=== PATIENT | male | born 1990 | race Two or more races ===

== ENCOUNTER 2019-10-24 17:24 | Inpatient (IN) | payer MEDICAID ==
[~2019-10-24] VITALS: Ht 167.6 cm; Wt 79.4 kg
[2019-10-24 18:13] LABS: BASOPHILS % 0.6 % (0.0-2.0); EOSINOPHILS % 1.8 % (0.0-5.0); HEMATOCRIT. 33.5 % (42.0-52.0); HEMOGLOBIN. 11.2 g/dL (14.0-18.0); LYMPHOCYTES % 16.3 % (20.0-50.0); MEAN CORPUSCULAR HEMOGLOBIN 28.8 pg (28.0-32.0); MEAN CORPUSCULAR VOLUME 85.8 fL (80.0-94.0); MEAN PLATELET VOLUME 7.4 fl (7.4-10.4); MONOCYTES % 7.5 % (2.0-8.0); NEUTROPHILS % 73.8 % (40.0-76.0); PLATELET 369 x1000/uL (130-400); RED BLOOD CELL COUNT 3.91 mill/uL (4.7-6.1); RED CELL DISTRIBUTION WIDTH 13.4 % (11.6-14.6)
[2019-10-24 18:16] LABS: INR 1.1; PROTHROMBIN TIME 11.7 sec (9.6-11.0)
[2019-10-24 18:20] LABS: CHLORIDE 110 mEq/L (98-107)
[2019-10-24] MEDS ORDERED: ONDANSETRON HCL 4MG/2ML INJ IV ONE (19:00)
[2019-10-24] MEDS ORDERED: SODIUM CHLORIDE 0.9% 1,000 ML IV ONE (19:00)
[2019-10-24] MEDS ORDERED: SODIUM CHLORIDE 0.9% 500 ML IV ONE (19:15)
[2019-10-24 20:01] LABS: HEMATOCRIT 26.6 % (42.0-52.0)
[2019-10-24] MEDS ORDERED: FAMOTIDINE 20MG/2ML VIAL IV ONE (20:45)
[2019-10-24 22:57] LABS: CLARITY URINE CLEAR (CLEAR); COLOR URINE YELLOW (YELLOW); KETONES URINE NEGATIVE (NEGATIVE); LEUKOCYTE ESTERASE URINE NEGATIVE (NEGATIVE); NITRITE URINE NEGATIVE (NEGATIVE); OCCULT BLOOD URINE NEGATIVE (NEGATIVE); PH URINE 5.5 (4.5-8.0); PROTEIN URINE NEGATIVE (NEGATIVE); SPECIFIC GRAVITY URINE 1.017 (1.005-1.030); UROBILINOGEN URINE 0.2 E.U./dL (0.2-1.0)
[2019-10-25] VITALS (12 sets, daily range): BP systolic 95–133; BP diastolic 50–80
[2019-10-25] MEDS ORDERED: OCTREOTIDE 1,000 MCG in SODIUM CHLORIDE 0.9% 100 ML IV ONE (00:30)
[2019-10-25] MEDS ORDERED: OCTREOTIDE 1,000 MCG in SODIUM CHLORIDE 0.9% 100 ML IV NR ×2 (01:00→02:00)
[2019-10-25] MEDS ORDERED: MORPHINE SULFATE 2 MG/ML CPJ (NOT FOR IM USE) IV PRN (03:45)
[2019-10-25] MEDS ORDERED: ONDANSETRON HCL 4MG/2ML INJ IV PRN (03:45)
[2019-10-25] MEDS ORDERED: OCTREOTIDE 1,000 MCG in SODIUM CHLORIDE 0.9% 98 ML IV SCH (05:00)
[2019-10-25] MEDS: DEXT 5%/0.45% NACL KCL 20MEQ/L 1,000 ML IV SCH ×3 (05:13→21:57)
[2019-10-25] MEDS: PANTOPRAZOLE SODIUM 40 MG/VIAL IV SCH (08:51)
[2019-10-25 09:41] LABS: BASOPHILS % 0.7 % (0.0-2.0); EOSINOPHILS % 2.9 % (0.0-5.0); HEMATOCRIT. 31.4 % (42.0-52.0); HEMOGLOBIN. 10.9 g/dL (14.0-18.0); LYMPHOCYTES % 22.6 % (20.0-50.0); MEAN CORPUSCULAR VOLUME 86.3 fL (80.0-94.0); MEAN PLATELET VOLUME 7.2 fl (7.4-10.4); MONOCYTES % 12.3 % (2.0-8.0); NEUTROPHILS % 61.5 % (40.0-76.0); PLATELET 270 x1000/uL (130-400); RED BLOOD CELL COUNT 3.64 mill/uL (4.7-6.1); RED CELL DISTRIBUTION WIDTH 13.7 % (11.6-14.6)
[2019-10-25 09:48] LABS: CHLORIDE 110 mEq/L (98-107)
[2019-10-26] VITALS (8 sets, daily range): BP systolic 101–118; BP diastolic 42–97
[2019-10-26] MEDS: DEXT 5%/0.45% NACL KCL 20MEQ/L 1,000 ML IV SCH (06:03)
[2019-10-26 06:55] LABS: CHLORIDE 108 mEq/L (98-107)
[2019-10-26 08:07] LABS: BASOPHILS % 1.2 % (0.0-2.0); EOSINOPHILS % 4.5 % (0.0-5.0); HEMATOCRIT. 33.3 % (42.0-52.0); HEMOGLOBIN. 11.6 g/dL (14.0-18.0); LYMPHOCYTES % 23.6 % (20.0-50.0); MEAN CORPUSCULAR HEMOGLOBIN 30.8 pg (28.0-32.0); MEAN CORPUSCULAR VOLUME 88.3 fL (80.0-94.0); MONOCYTES % 12.1 % (2.0-8.0); NEUTROPHILS % 58.6 % (40.0-76.0); PLATELET 226 x1000/uL (130-400); RED BLOOD CELL COUNT 3.77 mill/uL (4.7-6.1); RED CELL DISTRIBUTION WIDTH 13.8 % (11.6-14.6)
[2019-10-26] MEDS: PANTOPRAZOLE SODIUM 40 MG/VIAL IV SCH (09:59)
== END 2019-10-26 19:00 | disposition home or self-care (01) | DRG 254 ==
LOC: EDSEX 17:24 → ER 17:24 → 5EST 10-25 00:38 → EDBEDREQTM 10-25 00:42 → EDBEDREQSVC 10-25 00:42 → EDBEDREQDT 10-25 00:42 → ENRESERV 10-25 01:55
PROVIDERS: ADMIT Internal Medicine; ATTEND Internal Medicine
PROC: 30233N1 Transfusion of Nonautologous Red Blood Cells into Peripheral Vein, Percutaneous Approach (ICD-10-PCS; principal; 2019-10-25)
DX: K64.9 Unspecified hemorrhoids (principal); E87.8 Other disorders of electrolyte and fluid balance, not elsewhere classified; E44.0 Moderate protein-calorie malnutrition; G90.8 Other disorders of autonomic nervous system; D64.9 Anemia, unspecified; D72.829 Elevated white blood cell count, unspecified; K52.9 Noninfective gastroenteritis and colitis, unspecified; K62.89 Other specified diseases of anus and rectum; K60.2 Anal fissure, unspecified; Z68.28 Body mass index [BMI] 28.0-28.9, adult; Z79.899 Other long term (current) drug therapy
CPT/HCPCS: 36415; 74176; 80048; 80053; 81003; 84484; 85014; 85018; 85025; 86850; 86900; 86920; 93005; 99291; C9113; J2354; J2405; J3490; J7030; J7040; J7050; P9016

== ENCOUNTER 2019-10-26 17:00 | Inpatient (IN) | payer MEDICAID ==
[~2019-10-26] VITALS: Ht 167.6 cm; Wt 75.9 kg
[2019-10-26] MEDS ORDERED: SODIUM CHLORIDE 0.9% 1,000 ML IV ONE (18:37)
[2019-10-26] MEDS ORDERED: PANTOPRAZOLE SODIUM 40 MG/VIAL IV ONE (18:45)
[2019-10-26 19:06] LABS: BASOPHILS % 0.2 % (0.0-2.0); EOSINOPHILS % 0.4 % (0.0-5.0); HEMATOCRIT. 31.7 % (42.0-52.0); LYMPHOCYTES % 7.6 % (20.0-50.0); MEAN CORPUSCULAR HEMOGLOBIN 29.9 pg (28.0-32.0); MEAN CORPUSCULAR VOLUME 86.3 fL (80.0-94.0); MEAN PLATELET VOLUME 7.1 fl (7.4-10.4); MONOCYTES % 5.8 % (2.0-8.0); PLATELET 345 x1000/uL (130-400); RED BLOOD CELL COUNT 3.67 mill/uL (4.7-6.1); RED CELL DISTRIBUTION WIDTH 13.6 % (11.6-14.6)
[2019-10-26 19:13] LABS: CHLORIDE 106 mEq/L (98-107)
[2019-10-26 19:15] LABS: INR 1.1
[2019-10-27] VITALS (7 sets, daily range): BP systolic 96–123; BP diastolic 42–72
[2019-10-27] MEDS ORDERED: ONDANSETRON HCL 4MG TABLET PO PRN (03:00)
[2019-10-27] MEDS: SODIUM CHLORIDE 0.9% 1,000 ML IV SCH ×2 (04:09→12:03)
[2019-10-27] MEDS: PANTOPRAZOLE 80 MG in SODIUM CHLORIDE 0.9% 100 ML IV SCH ×2 (04:41→17:12)
[2019-10-27] MEDS ORDERED: OCTREOTIDE 1,000 MCG in SODIUM CHLORIDE 0.9% 98 ML IV PRN (05:00)
[2019-10-27 11:26] LABS: BASOPHILS % 0.6 % (0.0-2.0); EOSINOPHILS % 2.3 % (0.0-5.0); HEMOGLOBIN. 9.1 g/dL (14.0-18.0); LYMPHOCYTES % 19.2 % (20.0-50.0); MEAN CORPUSCULAR HEMOGLOBIN 30.3 pg (28.0-32.0); MEAN CORPUSCULAR VOLUME 85.7 fL (80.0-94.0); MEAN PLATELET VOLUME 7.6 fl (7.4-10.4); NEUTROPHILS % 67.9 % (40.0-76.0); PLATELET 280 x1000/uL (130-400); RED CELL DISTRIBUTION WIDTH 13.7 % (11.6-14.6)
[2019-10-27] MEDS: HEMORRHOIDAL SUPP PR SCH ×2 (12:09→21:20)
[2019-10-27] MEDS ORDERED: SORBITOL 70% SOLN 30ML PO NR ×2 (16:00→20:00)
[2019-10-27 16:26] LABS: CLARITY URINE CLEAR (CLEAR); COLOR URINE YELLOW (YELLOW); KETONES URINE 1+ (NEGATIVE); LEUKOCYTE ESTERASE URINE NEGATIVE (NEGATIVE); NITRITE URINE NEGATIVE (NEGATIVE); OCCULT BLOOD URINE NEGATIVE (NEGATIVE); PH URINE 5.5 (4.5-8.0); PROTEIN URINE NEGATIVE (NEGATIVE); SPECIFIC GRAVITY URINE 1.018 (1.005-1.030)
[2019-10-27 16:40] LABS: *BARBITURATES SCREEN URINE NEGATIVE (NEGATIVE); *BENZODIAZEPINES SCREEN URINE NEGATIVE (NEGATIVE); *COCAINE SCREEN URINE NEGATIVE (NEGATIVE); METHADONE URINE SCREEN NEGATIVE (NEGATIVE); OPIATES URINE SCREEN NEGATIVE (NEGATIVE)
[2019-10-27 16:41] LABS: *AMPHETAMINES SCREEN URINE NEGATIVE (NEGATIVE); CANNABINOID URINE SCREEN PRESUMTIVE POSITIVE (NEGATIVE); PHENCYCLIDINE URINE SCREEN NEGATIVE (NEGATIVE)
[2019-10-27 18:02] LABS: HEMATOCRIT 27.8 % (42.0-52.0); HEMOGLOBIN 9.5 g/dL (14.0-18.0)
[2019-10-27 23:04] LABS: HEMATOCRIT 27.8 % (42.0-52.0); HEMOGLOBIN 9.8 g/dL (14.0-18.0)
[2019-10-28] VITALS (13 sets, daily range): BP systolic 92–114; BP diastolic 56–69
[2019-10-28] MEDS: SODIUM CHLORIDE 0.9% 1,000 ML IV SCH ×4 (02:49→20:00)
[2019-10-28] MEDS: PANTOPRAZOLE 80 MG in SODIUM CHLORIDE 0.9% 100 ML IV SCH ×3 (02:49→21:36)
[2019-10-28] MEDS: HEMORRHOIDAL SUPP PR SCH ×2 (08:39→21:32)
[2019-10-28] MEDS ORDERED: NA PHOS,M-B/NA PHOS,DI-BA ENEMA 118ML PR NR (08:45)
[2019-10-28 09:50] LABS: BASOPHILS % 0.2 % (0.0-2.0); EOSINOPHILS % 0.1 % (0.0-5.0); HEMATOCRIT. 28.1 % (42.0-52.0); HEMOGLOBIN. 9.8 g/dL (14.0-18.0); LYMPHOCYTES % 15.3 % (20.0-50.0); MEAN CORPUSCULAR HEMOGLOBIN 30.8 pg (28.0-32.0); MEAN CORPUSCULAR VOLUME 87.9 fL (80.0-94.0); MEAN PLATELET VOLUME 7.3 fl (7.4-10.4); MONOCYTES % 8.7 % (2.0-8.0); NEUTROPHILS % 75.7 % (40.0-76.0); PLATELET 268 x1000/uL (130-400); RED BLOOD CELL COUNT 3.19 mill/uL (4.7-6.1)
[2019-10-28 09:58] LABS: INR 1.1
[2019-10-28 10:06] LABS: CHLORIDE 114 mEq/L (98-107)
[2019-10-28] MEDS ORDERED: SODIUM CHLORIDE 0.9% 10ML VIAL ONE (14:10)
[2019-10-28] MEDS ORDERED: MIDAZOLAM HCL 5 MG/5 ML VIAL ONE ×2 (15:08→15:30)
[2019-10-28] MEDS ORDERED: FENTANYL CITRATE/PF 50MCG/ML 2ML VIAL ONE (15:09)
[2019-10-28] MEDS ORDERED: MIDAZOLAM HCL 5 MG/5 ML VIAL IV PRN (15:16)
[2019-10-28] MEDS ORDERED: FENTANYL CITRATE/PF 50MCG/ML 2ML VIAL IV PRN (15:17)
[2019-10-29] VITALS: BP 113/60
[2019-10-29 04:12] VITALS: BP 104/70
[2019-10-29] MEDS: SODIUM CHLORIDE 0.9% 1,000 ML IV SCH ×2 (06:00→15:02)
[2019-10-29 08:00] VITALS: BP 90/49
[2019-10-29] MEDS: PANTOPRAZOLE 80 MG in SODIUM CHLORIDE 0.9% 100 ML IV SCH ×2 (08:27→21:55)
[2019-10-29] MEDS: HEMORRHOIDAL SUPP PR SCH (08:28)
[2019-10-29 08:37] LABS: BASOPHILS % 0.6 % (0.0-2.0); EOSINOPHILS % 3.1 % (0.0-5.0); HEMATOCRIT. 25.8 % (42.0-52.0); HEMOGLOBIN. 9.1 g/dL (14.0-18.0); LYMPHOCYTES % 23.1 % (20.0-50.0); MEAN CORPUSCULAR HEMOGLOBIN 30.8 pg (28.0-32.0); MEAN CORPUSCULAR VOLUME 87.3 fL (80.0-94.0); MEAN PLATELET VOLUME 7.1 fl (7.4-10.4); MONOCYTES % 9.3 % (2.0-8.0); NEUTROPHILS % 63.9 % (40.0-76.0); PLATELET 251 x1000/uL (130-400); RED BLOOD CELL COUNT 2.95 mill/uL (4.7-6.1); RED CELL DISTRIBUTION WIDTH 14.2 % (11.6-14.6)
[2019-10-29 09:09] LABS: CHLORIDE 111 mEq/L (98-107)
[2019-10-29 12:00] VITALS: BP 97/55
[2019-10-29] MEDS ORDERED: HYDR25SU37 RC (12:57)
[2019-10-29 16:00] VITALS: BP 120/63
[2019-10-29] MEDS ORDERED: SODIUM CHLORIDE 0.9% 1,000 ML IV SCH (16:30)
[2019-10-29 20:00] VITALS: BP 105/60
[2019-10-29] MEDS: HYDROCORTISONE ACETATE 25MG SUPP PR SCH (21:15)
[2019-10-30] VITALS (9 sets, daily range): BP systolic 75–119; BP diastolic 50–85
[2019-10-30] MEDS: SODIUM CHLORIDE 0.9% 1,000 ML IV SCH ×4 (01:26→21:01)
[2019-10-30] MEDS: PANTOPRAZOLE 80 MG in SODIUM CHLORIDE 0.9% 100 ML IV SCH ×3 (04:26→23:51)
[2019-10-30 06:17] LABS: EOSINOPHILS % 4.2 % (0.0-5.0); HEMATOCRIT. 25.6 % (42.0-52.0); LYMPHOCYTES % 22.5 % (20.0-50.0); MEAN CORPUSCULAR HEMOGLOBIN 30.5 pg (28.0-32.0); MEAN CORPUSCULAR VOLUME 86.6 fL (80.0-94.0); MEAN PLATELET VOLUME 7.5 fl (7.4-10.4); MONOCYTES % 10.6 % (2.0-8.0); NEUTROPHILS % 61.7 % (40.0-76.0); PLATELET 286 x1000/uL (130-400); RED BLOOD CELL COUNT 2.96 mill/uL (4.7-6.1); RED CELL DISTRIBUTION WIDTH 14.1 % (11.6-14.6)
[2019-10-30] MEDS: HYDROCORTISONE ACETATE 25MG SUPP PR SCH ×2 (10:13→21:01)
[2019-10-30 12:14] LABS: HEMATOCRIT 22.7 % (42.0-52.0); HEMOGLOBIN 8.1 g/dL (14.0-18.0)
[2019-10-30] MEDS ORDERED: ACETAMINOPHEN 325MG TABLET PO PRN (17:45)
[2019-10-31] VITALS (91 sets, daily range): BP systolic 73–157; BP diastolic 35–91
[2019-10-31 00:13] LABS: HEMATOCRIT 20.2 % (42.0-52.0)
[2019-10-31] MEDS: SODIUM CHLORIDE 0.9% 1,000 ML IV SCH ×3 (06:19→22:25)
[2019-10-31] MEDS: PANTOPRAZOLE 80 MG in SODIUM CHLORIDE 0.9% 100 ML IV SCH ×2 (06:20→22:24)
[2019-10-31 09:45] LABS: BASOPHILS % 0.5 % (0.0-2.0); HEMATOCRIT. 23.1 % (42.0-52.0); HEMOGLOBIN. 8.3 g/dL (14.0-18.0); LYMPHOCYTES % 21.1 % (20.0-50.0); MEAN CORPUSCULAR HEMOGLOBIN 31.2 pg (28.0-32.0); MEAN CORPUSCULAR VOLUME 87.3 fL (80.0-94.0); MEAN PLATELET VOLUME 7.1 fl (7.4-10.4); MONOCYTES % 9.8 % (2.0-8.0); NEUTROPHILS % 66.6 % (40.0-76.0); PLATELET 265 x1000/uL (130-400); RED BLOOD CELL COUNT 2.65 mill/uL (4.7-6.1); RED CELL DISTRIBUTION WIDTH 13.9 % (11.6-14.6)
[2019-10-31 09:56] LABS: CHLORIDE 113 mEq/L (98-107)
[2019-10-31] MEDS: HYDROCORTISONE ACETATE 25MG SUPP PR SCH ×2 (11:33→22:24)
[2019-10-31] MEDS ORDERED: IOHEXOL-350 100 ML BOTTLE ONE (11:49)
[2019-10-31 16:54] LABS: HEMATOCRIT 22.9 % (42.0-52.0); HEMOGLOBIN 8.1 g/dL (14.0-18.0)
[2019-11-01] VITALS (50 sets, daily range): BP systolic 73–142; BP diastolic 46–106
[2019-11-01] MEDS: PANTOPRAZOLE 80 MG in SODIUM CHLORIDE 0.9% 100 ML IV SCH ×3 (04:16→20:28)
[2019-11-01] MEDS: SODIUM CHLORIDE 0.9% 1,000 ML IV SCH ×2 (04:16→12:00)
[2019-11-01 05:46] LABS: EOSINOPHILS % 4.2 % (0.0-5.0); HEMATOCRIT. 21.1 % (42.0-52.0); HEMOGLOBIN. 7.5 g/dL (14.0-18.0); LYMPHOCYTES % 26.8 % (20.0-50.0); MEAN CORPUSCULAR HEMOGLOBIN 30.8 pg (28.0-32.0); MEAN CORPUSCULAR VOLUME 87.2 fL (80.0-94.0); MEAN PLATELET VOLUME 7.2 fl (7.4-10.4); MONOCYTES % 10.7 % (2.0-8.0); NEUTROPHILS % 57.3 % (40.0-76.0); PLATELET 257 x1000/uL (130-400); RED BLOOD CELL COUNT 2.42 mill/uL (4.7-6.1); RED CELL DISTRIBUTION WIDTH 14.2 % (11.6-14.6)
[2019-11-01 05:56] LABS: CHLORIDE 112 mEq/L (98-107)
[2019-11-01 10:08] LABS: SACCHAROMYCES CEREVISIAE IGG <20.0 Units (0.0-24.9); SACCHAROMYCES CEREVISIAE IGM <20.0 Units (0.0-24.9)
[2019-11-01] MEDS: HYDROCORTISONE ACETATE 25MG SUPP PR SCH (11:44)
[2019-11-01] MEDS ORDERED: P20 MT (17:02)
[2019-11-01] MEDS ORDERED: MESA800T MT (17:02)
[2019-11-01] MEDS: MESALAMINE 400 MG CAPSULE.DR PO SCH (17:58)
[2019-11-01] MEDS: METHYLPREDNISOLONE SOD SUCC 40 MG/ML VIAL IV SCH (17:58)
[2019-11-02] VITALS (38 sets, daily range): BP systolic 89–157; BP diastolic 22–120
[2019-11-02 00:33] LABS: HEMATOCRIT 25.9 % (42.0-52.0); HEMOGLOBIN 9.3 g/dL (14.0-18.0)
[2019-11-02] MEDS: METHYLPREDNISOLONE SOD SUCC 40 MG/ML VIAL IV SCH ×4 (01:47→23:54)
[2019-11-02] MEDS: HYDROCORTISONE ACETATE 25MG SUPP PR SCH ×3 (01:47→20:53)
[2019-11-02] MEDS: SODIUM CHLORIDE 0.9% 1,000 ML IV SCH ×3 (04:00→14:43)
[2019-11-02 05:31] LABS: CHLORIDE 107 mEq/L (98-107)
[2019-11-02 05:32] LABS: BASOPHILS % 0.2 % (0.0-2.0); HEMATOCRIT. 24.8 % (42.0-52.0); HEMOGLOBIN. 8.8 g/dL (14.0-18.0); LYMPHOCYTES % 7.9 % (20.0-50.0); MEAN CORPUSCULAR HEMOGLOBIN 30.8 pg (28.0-32.0); MEAN CORPUSCULAR VOLUME 87.2 fL (80.0-94.0); MEAN PLATELET VOLUME 7.3 fl (7.4-10.4); MONOCYTES % 2.3 % (2.0-8.0); NEUTROPHILS % 89.6 % (40.0-76.0); PLATELET 373 x1000/uL (130-400); RED BLOOD CELL COUNT 2.85 mill/uL (4.7-6.1); RED CELL DISTRIBUTION WIDTH 13.9 % (11.6-14.6)
[2019-11-02] MEDS: PANTOPRAZOLE 80 MG in SODIUM CHLORIDE 0.9% 100 ML IV SCH ×2 (06:45→17:27)
[2019-11-02] MEDS: MESALAMINE 400 MG CAPSULE.DR PO SCH ×3 (09:13→17:27)
[2019-11-02 13:11] LABS: ATYPICAL pANCA <1:20 titer (Neg:<1:20)
[2019-11-02 14:35] LABS: HEMATOCRIT 21.8 % (42.0-52.0); HEMOGLOBIN 7.4 g/dL (14.0-18.0)
[2019-11-03] VITALS (31 sets, daily range): BP systolic 76–143; BP diastolic 34–77
[2019-11-03 00:33] LABS: HEMATOCRIT 23.5 % (42.0-52.0); HEMOGLOBIN 8.3 g/dL (14.0-18.0)
[2019-11-03] MEDS: SODIUM CHLORIDE 0.9% 1,000 ML IV SCH ×2 (05:06→21:06)
[2019-11-03 05:29] LABS: HEMATOCRIT. 23.4 % (42.0-52.0); HEMOGLOBIN. 8.2 g/dL (14.0-18.0); MEAN CORPUSCULAR HEMOGLOBIN 30.5 pg (28.0-32.0); MEAN CORPUSCULAR VOLUME 87.1 fL (80.0-94.0); MEAN PLATELET VOLUME 7.6 fl (7.4-10.4); PLATELET 383 x1000/uL (130-400); RED BLOOD CELL COUNT 2.68 mill/uL (4.7-6.1); RED CELL DISTRIBUTION WIDTH 14.1 % (11.6-14.6)
[2019-11-03 05:38] LABS: CHLORIDE 107 mEq/L (98-107)
[2019-11-03 07:55] LABS: PLATELET ESTIMATE NORMAL
[2019-11-03] MEDS ORDERED: NA PHOS,M-B/NA PHOS,DI-BA ENEMA 118ML PR ONE (08:00)
[2019-11-03] MEDS: PANTOPRAZOLE 80 MG in SODIUM CHLORIDE 0.9% 100 ML IV SCH ×2 (08:31→17:46)
[2019-11-03] MEDS: METHYLPREDNISOLONE SOD SUCC 40 MG/ML VIAL IV SCH ×2 (08:31→17:37)
[2019-11-03] MEDS: MESALAMINE 400 MG CAPSULE.DR PO SCH ×3 (09:00→17:36)
[2019-11-03] MEDS: HYDROCORTISONE ACETATE 25MG SUPP PR SCH ×2 (09:00→21:05)
[2019-11-03] MEDS ORDERED: MIDAZOLAM HCL 5 MG/5 ML VIAL ONE (10:19)
[2019-11-03] MEDS ORDERED: MIDAZOLAM HCL 5 MG/5 ML VIAL IV PRN (10:19)
[2019-11-03] MEDS ORDERED: FENTANYL CITRATE/PF 50MCG/ML 2ML VIAL ONE (10:20)
[2019-11-03] MEDS ORDERED: FENTANYL CITRATE/PF 50MCG/ML 2ML VIAL IV PRN (10:20)
[2019-11-03] MEDS: PIPERACILLIN/TAZOBACTAM 3.375 G in DEXT 5% WATER 100 ML IV SCH ×2 (12:57→18:00)
[2019-11-04] VITALS (41 sets, daily range): BP systolic 90–142; BP diastolic 31–92
[2019-11-04] MEDS: METHYLPREDNISOLONE SOD SUCC 40 MG/ML VIAL IV SCH ×4 (00:03→23:03)
[2019-11-04] MEDS: SODIUM CHLORIDE 0.9% 1,000 ML IV SCH ×3 (00:03→23:05)
[2019-11-04] MEDS: PIPERACILLIN/TAZOBACTAM 3.375 G in DEXT 5% WATER 100 ML IV SCH ×5 (00:03→23:04)
[2019-11-04] MEDS: PANTOPRAZOLE 80 MG in SODIUM CHLORIDE 0.9% 100 ML IV SCH ×2 (04:01→20:44)
[2019-11-04 05:35] LABS: HEMATOCRIT. 21.4 % (42.0-52.0); HEMOGLOBIN. 7.3 g/dL (14.0-18.0); MEAN CORPUSCULAR HEMOGLOBIN 29.8 pg (28.0-32.0); MEAN CORPUSCULAR VOLUME 87.6 fL (80.0-94.0); MEAN PLATELET VOLUME 7.9 fl (7.4-10.4); PLATELET 406 x1000/uL (130-400); RED BLOOD CELL COUNT 2.45 mill/uL (4.7-6.1); RED CELL DISTRIBUTION WIDTH 14.2 % (11.6-14.6)
[2019-11-04 05:42] LABS: CHLORIDE 108 mEq/L (98-107)
[2019-11-04 06:06] LABS: HIV SCREEN 4G Non Reactive (Non Reactive)
[2019-11-04 07:19] LABS: PLATELET ESTIMATE NORMAL
[2019-11-04] MEDS: MESALAMINE 400 MG CAPSULE.DR PO SCH ×3 (08:38→17:38)
[2019-11-04] MEDS: HYDROCORTISONE ACETATE 25MG SUPP PR SCH ×2 (08:39→20:44)
[2019-11-04 09:49] LABS: TOTAL IRON BINDING CAPACITY 292 ug/dL (250-450)
[2019-11-04 15:47] LABS: HEMATOCRIT 24.1 % (42.0-52.0); HEMOGLOBIN 8.3 g/dL (14.0-18.0)
[2019-11-04] MEDS ORDERED: FERR325T6 MT (15:57)
[2019-11-04] MEDS ORDERED: DOCU250C14 MT (15:57)
[2019-11-05] VITALS (13 sets, daily range): BP systolic 98–120; BP diastolic 44–61
[2019-11-05] MEDS: PIPERACILLIN/TAZOBACTAM 3.375 G in DEXT 5% WATER 100 ML IV SCH (05:07)
[2019-11-05] MEDS: PANTOPRAZOLE 80 MG in SODIUM CHLORIDE 0.9% 100 ML IV SCH ×2 (05:09→09:57)
[2019-11-05 05:15] LABS: BASOPHILS % 0.5 % (0.0-2.0); HEMATOCRIT. 23.8 % (42.0-52.0); HEMOGLOBIN. 8.3 g/dL (14.0-18.0); LYMPHOCYTES % 8.6 % (20.0-50.0); MEAN CORPUSCULAR HEMOGLOBIN 30.4 pg (28.0-32.0); MEAN CORPUSCULAR VOLUME 87.6 fL (80.0-94.0); MEAN PLATELET VOLUME 7.6 fl (7.4-10.4); MONOCYTES % 5.8 % (2.0-8.0); NEUTROPHILS % 85.1 % (40.0-76.0); PLATELET 420 x1000/uL (130-400); RED BLOOD CELL COUNT 2.72 mill/uL (4.7-6.1); RED CELL DISTRIBUTION WIDTH 14.4 % (11.6-14.6)
[2019-11-05 05:17] LABS: CHLORIDE 108 mEq/L (98-107)
[2019-11-05] MEDS ORDERED: PANTOPRAZOLE SODIUM 40 MG/VIAL IV ONE (08:35)
[2019-11-05] MEDS: HYDROCORTISONE ACETATE 25MG SUPP PR SCH (09:55)
[2019-11-05] MEDS: MESALAMINE 400 MG CAPSULE.DR PO SCH (09:55)
[2019-11-05] MEDS: METHYLPREDNISOLONE SOD SUCC 40 MG/ML VIAL IV SCH (09:55)
== END 2019-11-05 11:20 | disposition home or self-care (01) | DRG 245 ==
LOC: ER 17:00 → 6WST 20:11 → EDBEDREQTM 20:14 → EDBEDREQ 20:14 → ENRESERV 23:23 → MICUSO 10-30 23:20
PROVIDERS: ADMIT Internal Medicine; ATTEND Internal Medicine
PROC: 0DBK8ZX Excision of Ascending Colon, Via Natural or Artificial Opening Endoscopic, Diagnostic (ICD-10-PCS; principal; 2019-10-28)
PROC: 0DBP8ZX Excision of Rectum, Via Natural or Artificial Opening Endoscopic, Diagnostic (ICD-10-PCS; 2019-10-28)
DX: K51.211 Ulcerative (chronic) proctitis with rectal bleeding (principal); R57.1 Hypovolemic shock; E44.0 Moderate protein-calorie malnutrition; G90.8 Other disorders of autonomic nervous system; K60.2 Anal fissure, unspecified; D72.829 Elevated white blood cell count, unspecified; D64.9 Anemia, unspecified
CPT/HCPCS: 36415; 74174; 78278; 80048; 80053; 80305; 81003; 82378; 82728; 83036; 83540; 83550; 84145; 85014; 85018; 85025; 86256; 86671; 86850; 86900; 86920; 87015; 87045; 87389; 87427; 87449; 88305; 96374; 99285; A9560; C9113; J2250; J2543; J2920; J3010; J7030; J7050; J7060; P9016; Q9967